=== PATIENT | male | born 1960 | race Caucasian/White ===

== ENCOUNTER 2025-01-09 10:13 | Emergency (ER) | payer OTHER, SELFPAY ==
--- NOTE | 2025-01-09 10:17 | ED.URI ---
HPI - URI/Sore Throat General Chief Complaint: Upper Respiratory Infection Stated Complaint: COUGH/CONGESTION/HEADACHE/EAR Time Seen by Provider: 01/09/25 10:25 Source: patient Mode of arrival: ambulatory Limitations: no limitations History of Present Illness HPI Narrative: Rhys is a 64-year-old male patient presenting to the clinic today with complaints of cough, sinus congestion, chest congestion, headache, and ear pain x3 weeks. He reports he has been blowing out some yellowish green nasal drainage. Nonproductive cough. Denies any shortness of breath or chest pain. No known fevers. States over the past 4-5 days he has had headache over the frontal and maxillary sinuses. Related Data Home Medications ?Medication ?Instructions ?Recorded ?Confirmed ?Last Taken ?Type amlodipine 10 mg tablet mg 01/09/25 Unknown History losartan 100 tablet 01/09/25 Unknown History mg-hydrochlorothiazide 25 mg tablet simvastatin 20 mg tablet mg 01/09/25 Unknown History Allergies Allergy/AdvReac Type Severity Reaction Status Date / Time No Known Allergies Allergy Verified 01/09/25 10:29 Review of Systems Review of Systems: Pertinent positives per HPI. Patient denies any fever, chills, rash, headache, visual changes, dizziness, cough, runny nose, sore throat, shortness of breath, chest pain, palpitations, nausea, vomiting, diarrhea, constipation, abdominal pain, or any urinary issues. PMFSH Comments At the time of my signature, I reviewed and agree with the nursing past medical, surgical, social, and family history. There is no relevant family history pertinent to the patient complaint. Exam Narrative: General: Well-developed, well nourished, in no apparent distress Head: Normocephalic, atraumatic Eyes: Pupils equally round and reactive to light bilaterally, EOM intact, sclera and conjunctive clear, no discharge, lids normal Ears: TMs intact, congested, and mild bulging, ear canals clear, no drainage, grossly hearing normal. Nose: Nares patent, yellow nasal discharge, severe inflammation, maxillary and frontal sinus tenderness. Mouth: Oropharynx without lesions or masses, good dentition, MMM. Post Neck: Supple, trachea midline, no enlargement of anterior or posterior cervical nodes, no thyroid masses or goiter palpable. Cardio: Regular rate and rhythm, s1 and s2 normal, no murmur appreciated. Resp: Clear to auscultation bilaterally anteriorly and posteriorly, no rhonchi, rales, wheezing or rubs Course Course Emergency Course: Portions of this record may have been created with voice recognition software. Level of Care: Express Care Visit Vital Signs Vital signs: Vital Signs Temperature 36.3 C L 01/09/25 10:25 Pulse Rate 80 01/09/25 10:25 Respiratory Rate 16 01/09/25 10:25 Blood Pressure 119/84 01/09/25 10:25 Pulse Oximetry 100 01/09/25 10:25 Temperature 36.3 C L 01/09/25 10:25 Pulse Rate 80 01/09/25 10:25 Respiratory Rate 16 01/09/25 10:25 Blood Pressure 119/84 01/09/25 10:25 Pulse Oximetry 100 01/09/25 10:25 Vital signs reviewed MDM - URI/Sore Throat MDM Narrative Medical decision making narrative: At the time of visit patient is resting comfortably on the exam table. Patient appears to be nontoxic. Plan: I suspect patient has acute bacterial rhinosinusitis. Prescription for Augmentin and prednisone was sent to the pharmacy. Supportive measures were discussed with the patient and they voiced understanding discharge instructions and agrees to treatment plan. Return precautions reviewed Differential Diagnosis Differential diagnosis: Likely upper respiratory infection, otitis media, sinusitis, viral infection, bronchitis, influenza, pharyngitis and other (COVID) Discharge Plan Discharge Clinical Impression: Acute bacterial rhinosinusitis Patient Disposition: Home Condition: Stable Instructions: Antibiotic Form, Rhinosinusitis (ED) Additional Instructions: Take prescription medications only as prescribed-Augmentin and prednisone Increase fluids and stay well hydrated Tylenol/motrin for pain/fever Flonase and OTC antihistamines as directed Vicks vapor rub to open sinuses Sinus rinses for congestion Cepacol spray, cough drops, throat lozenges, warm tea with honey/lemon, gargle salt water to soothe throat BRAT diet for diarrhea Clear liquids x 24 hours then advance as tolerated for nausea/vomiting Go to the ED if you develop a worsening in your condition- high fever not controlled by Tylenol or Motrin, dehydration, weakness, lethargy, shortness of breath, or chest pain. Follow up with your PCP in 3-5 days if symptoms persist. Patient Language: Slovenian Prescriptions: New amoxicillin-pot clavulanate 875-125 mg tablet 1 tablet PO Q12H 10 Days Qty: 20 0RF prednisone 20 mg tablet 40 mg PO DAILY 5 Days Qty: 10 0RF No Action losartan-hydrochlorothiazide 100-25 mg tablet amlodipine 10 mg tablet simvastatin 20 mg tablet Follow-up/Referrals: Lieu,Jose [Other] Time of Disposition: 10:28 Quality NIHSS Nursing Documentation ED NIHSS nursing documentation: reviewed/agree
[2025-01-09 10:25] VITALS: BP 119/84; PULSE 80; RESP 16; TEMP 36.3; O2SAT 100
== END 2025-01-09 10:31 | disposition home or self-care (01) ==
PROVIDERS: Emergency Provider Nurse Practitioner Family
DX: J01.90 Acute sinusitis, unspecified (principal); I10 Essential (primary) hypertension; E78.00 Pure hypercholesterolemia, unspecified
CPT/HCPCS: 99203; G0463